=== PATIENT | female | born 1935 | race Caucasian/White ===

== ENCOUNTER → 2016-12-14 | Outpatient (CLI) | payer MEDICARE, BC ==
[~2016-12-14] MED LIST: AMLODIPINE BESYL5 MG PO; CALCIUM + VITA1 EACH PO; CORDARONE200 M1 PO; COUMADIN5 MG PO; FISH OIL 1,2001 CAP PO; FLAXSEED OIL1000 M1 PO; HYZAAR 100-25 T1 TA1 PO; LOSARTAN-HCTZ1 EAC1 PO; MEDI-MECLIZINE25 M1 PO; MOTION RELIEF25 MG PO; MULTI-VITAMIN1 EAC1 PO; PACERONE100 MG PO; SIMVASTATIN20 MG PO; VITAMIN D31000 UNI1 PO; ZOCOR20 MG PO
--- NOTE | ~2016-12-14 | CT69 ---
[facility] A Service of [facility] RADIOLOGY TEXT RESULTS PATIENT: ANGELES TAYLOR LOCATION: [facility] : 35 UNIT #: [id number] AGE: [address]: Doc Fair MD SEX: F ORDER DR: [id number] [facility] [address] [place], [place] [address] [id number] O MR#: [id number] [facility] #: [id number] NAME: ANGELES TAYLOR : 1935 SEX: F STUDY DATE/TIME: 12/14/2016 13:43 UNIT: [facility] ROOM: STUDY DESCRIPTION: CT Head W Contrast Attending Physician: Doc Fair M.D. Referring Physician: Doc Fair M.D. Ordering Physician: Doc Fair M.D. Primary Care Physician: Doc Fair M.D. MEDICAL IMAGING REPORT This report is preliminary unless electronic signature is present EXAM Head CT with contrast, 12/14/[address] with and without contrast, 12/25/2007. HISTORY Remote history of breast cancer with recent 2-week history of headaches. TECHNIQUE This CT exam was performed with one or more of the following radiation dose reduction techniques: automatic exposure control, adjustment of mA and/or kV according to patient size, and iterative reconstruction. FINDINGS There is no intracranial mass or abnormal enhancement. There is no hydrocephalus or extraaxial fluid collection. The extracranial soft tissues are normal. There is degenerative change in the temporomandibular joints, though grossly not substantially worsened since the prior exam. The skull base and calvaria are otherwise unremarkable. IMPRESSION Normal contrast-enhanced head CT. There is some degenerative change in the temporomandibular joints bilaterally but there is no mass or abnormal enhancement or other acute abnormality. Dictated by... Hudson Wright M.D. THIS IS AN ELECTRONICALLY VERIFIED REPORT Hudson Wright M.D. at 12/19/2016 5:12 PM [facility] A Service of [facility] RADIOLOGY TEXT RESULTS PATIENT: ANGELES TAYLOR LOCATION: [facility] : 35 UNIT #: [id number] AGE: [address]: Doc Fair MD SEX: F ORDER DR: Dolores TD: 12/14/2016 23:06 JOB #: [id number] MEDICAL IMAGING REPORT COPY
[2016-12-14 15:43] LABS: POC - CREATININE 0.85 mg/dL (0.44-1.03); POC - GFR >60.0 mL/min (>60)
== END | disposition home or self-care (01) ==
LOC: CCAT 13:09
PROVIDERS: Internal Medicine
DX: R51 Headache (principal); M26.69 Other specified disorders of temporomandibular joint; Z85.3 Personal history of malignant neoplasm of breast
CPT/HCPCS: 70460; 82565; Q9967

== ENCOUNTER → 2017-02-01 | Outpatient (CLI) | payer MEDICARE, BC ==
--- NOTE | ~2017-02-01 | MY10 ---
[facility] A Service of [facility] RADIOLOGY TEXT RESULTS PATIENT: ANGELES TAYLOR LOCATION: [facility] : 35 UNIT #: [id number] AGE: [address]: Braxton Jasmine MD SEX: F ORDER DR: [id number] [facility] [address] [place], [place] [address] [id number] O MR#: [id number] Acc #: [id number] NAME: ANGELES TAYLOR : 1935 SEX: F STUDY DATE/TIME: 02/01/2017 10:11 UNIT: [facility] ROOM: STUDY DESCRIPTION: MY Mammogram Screen Uni Dig Rt Attending Physician: Braxton Jasmine M.D. Referring Physician: Braxton Jasmine M.D. Ordering Physician: Braxton Jasmine M.D. Primary Care Physician: Doc Fair M.D. MEDICAL IMAGING REPORT This report is preliminary unless electronic signature is present EXAM Right breast digital screening mammogram with CAD 02/01/2017 HISTORY 81-year-old female with family history of breast cancer in a sister and an aunt. Personal history of breast cancer on the left at the age of 69 with mastectomy. No current complaints. COMPARISON Right breast screening mammogram 01/11/2016, 01/07/2015, 12/24/2013. FINDINGS CC and MLO views were obtained of the right breast utilizing digital technique and reviewed with an FDA-approved CAD device. Scattered fibroglandular densities are present in the right breast, greatest in the lateral hemisphere central third. The parenchymal pattern appears stable. No new or developing nodule, architectural distortion or clustered microcalcification is seen. Benign round calcification is seen in the anterior right breast. IMPRESSION BIRADS 2. Stable findings. No features suspicious for malignancy in the right breast. Status post left mastectomy. Routine right breast screening mammogram recommended in 1 year. Patients over the age of 40 are entered into a reminder system with target due date for the next mammogram. A result letter will also be sent to the patient. BIRADS: 2 Benign finding [facility] A Service of [facility] RADIOLOGY TEXT RESULTS PATIENT: ANGELES TAYLOR LOCATION: [facility] : 35 UNIT #: [id number] AGE: [address]: Braxton Jasmine MD SEX: F ORDER DR: Dictated by... Lillian Haider M.D. THIS IS AN ELECTRONICALLY VERIFIED REPORT Lillian Haider M.D. at 02/02/2017 7:24 AM BRITTON/susan TD: 02/01/2017 14:13 JOB #: [id number] MEDICAL IMAGING REPORT Page 1 of 1 COPY
== END | disposition home or self-care (01) ==
LOC: CWCC 09:56
DX: Z12.31 Encounter for screening mammogram for malignant neoplasm of breast (principal); Z85.3 Personal history of malignant neoplasm of breast; Z80.3 Family history of malignant neoplasm of breast; Z90.12 Acquired absence of left breast and nipple
CPT/HCPCS: G0202